=== PATIENT | male | born 1995 | race Two or more races ===

== ENCOUNTER 2019-02-20 16:45 | Emergency (ER) | payer MEDICAID ==
[~2019-02-20] VITALS: Ht 182.9 cm; Wt 93.0 kg
[2019-02-20] MEDS ORDERED: DOCUSATE SODIUM 100 MG/10 ML LIQUID UDC ONE (17:00)
[2019-02-20] MEDS: DOCUSATE SODIUM 100 MG/10 ML LIQUID UDC OT ONE (17:02)
--- NOTE | 2019-02-20 17:31 | NUR ---
Patient discharged to home in stable conditon & brisk steady gait. Written and verbal after care instructions given to patient. Patient verbalizes understanding & compliance of instructions.
== END 2019-02-20 17:32 | disposition home or self-care (01) ==
LOC: ER 16:45
DX: H61.22 Impacted cerumen, left ear (principal)
CPT/HCPCS: A4663